=== PATIENT | female | born 1945 | race Caucasian/White ===

== ENCOUNTER 2018-06-26 09:01 | Emergency (ER) | payer MEDICARE, BC | END 2018-06-26 10:07 | disposition home or self-care (01) | LOC: M ED 09:01 | DX: H11.32 Conjunctival hemorrhage, left eye (principal); M19.90 Unspecified osteoarthritis, unspecified site; Z79.899 Other long term (current) drug therapy; Z88.1 Allergy status to other antibiotic agents; Z88.8 Allergy status to other drugs, medicaments and biological substances; Z88.5 Allergy status to narcotic agent; Z91.040 Latex allergy status | CPT/HCPCS: 99282 ==